=== PATIENT | male | born 1990 | race Caucasian/White ===

== ENCOUNTER 2019-06-14 19:35 | Emergency (ER) | payer OTHER ==
[~2019-06-14] VITALS: Ht 175.3 cm; Wt 89.8 kg
[~2019-06-14 19:35] MED LIST: PREDNISONE 20 M20 MG PO; TESSALON PERLE100 MG PO; VENTOLIN HFA 1818 GM INH; ZOFRAN ODT4 MG PO
[2019-06-14 19:38] VITALS: BP 163/84
[2019-06-14] MEDS ORDERED: TRAMADOL 50 MG50 MG PO (19:46)
[2019-06-14] MEDS ORDERED: AMOXICILLIN 50500 MG PO (19:46)
== END 2019-06-14 20:05 | disposition home or self-care (01) ==
LOC: M.ERS 19:35
DX: K02.9 Dental caries, unspecified (principal); R03.0 Elevated blood-pressure reading, without diagnosis of hypertension; I48.91 Unspecified atrial fibrillation

== ENCOUNTER 2019-06-23 09:37 | Emergency (ER) | payer OTHER ==
[~2019-06-23] VITALS: Ht 175.3 cm; Wt 90.7 kg
[~2019-06-23 09:37] MED LIST changes: +AMOXICILLIN 50500 MG PO; +TRAMADOL 50 MG50 MG PO
[2019-06-23 10:10] LABS: ABSOLUTE EOSINOPHILS 0.3 thou/uL (0.0-0.7); ABSOLUTE LYMPHOCYTES 2.6 thou/uL (0.8-5.3); ABSOLUTE MONOCYTES 0.7 thou/uL (0.0-1.2); BASOPHILS 0.6 %; EOSINOPHILS 4.1 %; HEMATOCRIT 46.5 % (42.0-52.0); HEMOGLOBIN 16.1 gm/dL (14.0-18.0); LYMPHOCYTES 34.1 %; MCH 30.4 pg (26.0-34.0); MCHC 34.7 g/dL (28.0-37.0); MCV 87.6 fL (80.0-100.0); MONOCYTES 8.6 %; MPV 8.4 fl. (7.2-11.1); NUCLEATED RBCS 0 /100WBC; PLATELET COUNT* 210 thou/uL (150-400); POLYS 52.6 %; RBC 5.31 mil/uL (4.50-6.00); RDW-CV 12.2 % (10.5-14.5); WBC 7.6 thou/uL (4.0-11.0)
[2019-06-23 10:15] LABS: APTT 25.7 Seconds (25.0-31.3); INR 1.1
[2019-06-23 10:19] LABS: CALCIUM 9.4 mg/dL (8.5-10.1); CREATININE 1.1 mg/dL (0.6-1.3); POTASSIUM 3.6 mmol/L (3.5-5.1)
[2019-06-23 10:36] LABS: ALBUMIN 4.2 g/dL (3.4-5.0); CK-MB MASS 1.1 ng/mL (<0.5-3.6); TOTAL BILIRUBIN 0.9 mg/dL (<0.1-1.0); TOTAL PROTEIN 7.5 g/dL (6.4-8.2)
[2019-06-23 11:07] VITALS: BP 101/66
--- NOTE | 2019-06-23 19:56 | EKG ---
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1990 Requested By: Shadi Centeno Order Number: [id number] MD: Salomón Foster Measurements Intervals [place] Rate: 82 P: 52 CT: 179 QRS: 50 QRSD: 102 T: 1 QT: 370 QTc: 432 Interpretive Statements Sinus rhythm RSR' in V1 or V2, probably normal variant No previous ECG available for comparison Electronically Signed On 06-23-2019 19:56:31 COAT REPAIR INSPECTOR by Salomón Foster [email or web address] <ELECTRONICALLY SIGNED> By: Salomón Foster MD, [facility] 06/23/191955 0942 0942 Salomón Foster MD, FACC /EPI
== END 2019-06-23 11:09 | disposition home or self-care (01) ==
LOC: M.ERS 09:37
PROVIDERS: Family Medicine
DX: R07.89 Other chest pain (principal); R11.2 Nausea with vomiting, unspecified; I48.91 Unspecified atrial fibrillation

== ENCOUNTER 2019-09-06 19:18 | Emergency (ER) | payer OTHER ==
[~2019-09-06] VITALS: Ht 172.7 cm; Wt 90.7 kg
[2019-09-06 20:28] LABS: INFLUENZA A ANTIGEN Positive (Negative); INFLUENZA B ANTIGEN Negative (Negative)
[2019-09-06] MEDS ORDERED: ZOFRAN ODT4 MG PO (20:36)
[2019-09-06] MEDS ORDERED: TAMIFLU75 MG PO (20:36)
[2019-09-06 20:50] VITALS: BP 124/83
--- NOTE | 2019-09-07 11:18 | EKG ---
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1990 Requested By: Héctor Cheng Order Number: [id number] MD: Salomón Foster Measurements Intervals [place] Rate: 68 P: 22 OR: 169 QRS: 74 QRSD: 100 T: 3 QT: 339 QTc: 361 Interpretive Statements Sinus rhythm RSR' in V1 or V2, right VCD or RVH Compared to ECG 06/23/2019 09:42:52 Right ventricular hypertrophy now present Electronically Signed On 09-07-2019 11:17:22 HOSPITALITY HOUSEKEEPER by Salomón Foster [email or web address] <ELECTRONICALLY SIGNED> By: Salomón Foster MD, FACC 09/07/19 1117 99 99 Salomón Foster MD, FAC /EPI
== END 2019-09-06 21:24 | disposition home or self-care (01) ==
LOC: M.ERS 19:18
PROVIDERS: Emergency Medicine
DX: J11.1 Influenza due to unidentified influenza virus with other respiratory manifestations (principal); I48.91 Unspecified atrial fibrillation

== ENCOUNTER → 2021-01-23 | Emergency (ER) | payer BC ==
[~2021-01-23] VITALS: Ht 175.3 cm; Wt 90.7 kg
[~2021-01-23] MED LIST changes: +AMOXIL 875 MG875 M1 PO; +TAMIFLU75 MG PO
[2021-01-23 21:11] VITALS: BP 138/92
== END ==
LOC: M.ERS 20:58
DX: K04.7 Periapical abscess without sinus (principal); L08.9 Local infection of the skin and subcutaneous tissue, unspecified; I48.91 Unspecified atrial fibrillation